=== PATIENT | female | born 1955 | race Caucasian/White ===

== ENCOUNTER 2020-01-12 10:02 | Day surgery (SDC) | payer OTHER ==
[2020-01-11 16:04] VITALS: BMI 24.7
[2020-01-12 12:42] VITALS: TEMP 97.5
[2020-01-12 13:03] VITALS: BP 123/62; PULSE 58
--- NOTE | 2020-01-15 16:29 | PATH ---
Surgical Pathology Report Patient Name: OMER AVELAR [facility]. Rec. #: [id number] /Age/Gender: 1955 (Age: 64) / F Account: [id number] Location: [facility]-ENDOSCOPY Taken: 01/12/2020 Received: 01/12/2020 Reported: 01/15/2020 Physicians: Arnoldo Eden M.D. Specimen(s) Received A: DESCENDING COLON POLYP B: SIGMOID COLON POLYP Clinical History History of colon polyps, family history of colon cancer Postoperative diagnosis: Colon polyps, hemorrhoids Final Diagnosis A. DESCENDING COLON POLYP, BIOPSY: POLYPOID COLONIC MUCOSA WITH REACTIVE LYMPHOID AGGREGATES IN THE LAMINA PROPRIA. B. SIGMOID COLON POLYP, BIOPSY: POLYPOID COLONIC MUCOSA WITH FOCAL SURFACE HYPERPLASTIC CHANGE. Electronically Signed J Carlos Mcclendon M.D. Gross Description A. Received in formalin, labeled "polyp descending colon" are 2 castro, irregular portions of soft tissue measuring 0.1 and 0.5 cm. in greatest dimension. The specimens are submitted in toto in one cassette. B. Received in formalin, labeled "polyp sigmoid colon" is a castro, irregular portion of soft tissue measuring 0.3 cm. in greatest dimension. The specimen is submitted in toto in one cassette. /01/12/2020 saudi01/12/2020
== END 2020-01-12 13:08 | disposition home or self-care (01) ==
LOC: JASU-ENDO 10:02
PROVIDERS: ATTEND Internal Medicine Gastroenterology
PROC: 0DBN8ZX Excision of Sigmoid Colon, Via Natural or Artificial Opening Endoscopic, Diagnostic (ICD-10-PCS; 2020-01-12)
PROC: 0DBM8ZX Excision of Descending Colon, Via Natural or Artificial Opening Endoscopic, Diagnostic (ICD-10-PCS; principal; 2020-01-12 12:00)
DX: Z86.010 Personal history of colon polyps (principal); Z80.0 Family history of malignant neoplasm of digestive organs; D12.4 Benign neoplasm of descending colon; D12.5 Benign neoplasm of sigmoid colon; I10 Essential (primary) hypertension; E03.9 Hypothyroidism, unspecified; Z86.73 Personal history of transient ischemic attack (TIA), and cerebral infarction without residual deficits; K57.30 Diverticulosis of large intestine without perforation or abscess without bleeding; K64.8 Other hemorrhoids
CPT/HCPCS: 88305-TC